=== PATIENT | female | born 2000 | race Caucasian/White ===

== ENCOUNTER 2022-11-04 16:56 | Emergency (ER) | payer BC, OTHER ==
[2022-11-04] MEDS ORDERED: Lidocaine 1% (PF) 30 ML VIAL ONE (17:05)
[2022-11-04] MEDS ORDERED: Morphine 4 MG/ML VIAL ONE (17:05)
[2022-11-04] MEDS ORDERED: Ondansetron ODT 4 MG TAB ONE ×2 (17:05→17:10)
[2022-11-04] MEDS ORDERED: Boostrix 0.5 ML (Tdap) VIAL (>/=7 yrs of age) ONE (17:06)
== END 2022-11-04 18:10 | disposition home or self-care (01) ==
LOC: ERS 16:56
DX: S60.456A Superficial foreign body of right little finger, initial encounter (principal); W45.8XXA Other foreign body or object entering through skin, initial encounter; Z23 Encounter for immunization
CPT/HCPCS: 90471; 90715; 96372; J2001; J2270; Q0162